=== PATIENT | male | born 1950 | race African-American/Black ===

== ENCOUNTER 2017-02-17 21:09 | Inpatient (IN) | payer OTHER ==
[~2017-02-17] VITALS: Ht 185.4 cm; Wt 81.2 kg
[2017-02-17] MEDS ORDERED: LORAZEPAM 2MG/ML CPJ IM ONE ×2 (22:00)
[2017-02-17] MEDS ORDERED: SODIUM CHLORIDE 0.9% 1,000 ML IV ONE (22:00)
[2017-02-17 22:46] LABS: BASOPHILS % 0.5 % (0.0-2.0); HEMATOCRIT. 40.3 % (42.0-52.0); HEMOGLOBIN. 13.7 g/dL (14.0-18.0); LYMPHOCYTES % 10.7 % (20.0-50.0); MEAN CORPUSCULAR HEMOGLOBIN 32.4 pg (28.0-32.0); MEAN CORPUSCULAR VOLUME 95.4 fL (80.0-94.0); MEAN PLATELET VOLUME 6.6 fl (7.4-10.4); MONOCYTES % 4.3 % (2.0-8.0); NEUTROPHILS % 84.5 % (40.0-76.0); PLATELET 328 x1000/uL (130-400); RED BLOOD CELL COUNT 4.23 mill/uL (4.7-6.1); RED CELL DISTRIBUTION WIDTH 14.3 % (11.6-14.6)
[2017-02-17 22:54] LABS: CHLORIDE 101 mEq/L (98-107)
[2017-02-17 22:55] LABS: INR 1.1; PARTIAL THROMBOPLASTIN TIME 28.6 sec (23.4-31.0); PROTHROMBIN TIME 11.1 sec (9.4-11.6)
[2017-02-17 22:58] LABS: CARBON DIOXIDE 27 mEq/L (21-32)
[2017-02-17 23:03] LABS: CARBAMAZEPINE < 0.5 ug/mL (4-12); PHENOBARBITAL < 2.1 ug/mL (15.0-40.0)
[2017-02-17 23:04] LABS: TROPONIN I < 0.02 ng/mL (0.00-0.04)
[2017-02-17 23:05] LABS: CREATINE KINASE MB FRACTION 1.4 ng/mL (0.5-3.6)
[2017-02-18] MEDS ORDERED: ASPIRIN 81MG TABLET PO ONE (00:15)
[2017-02-18] MEDS ORDERED: VALPROIC ACID 250MG CAPSULE PO ONE (00:30)
[2017-02-18 02:07] LABS: CLARITY URINE CLEAR (CLEAR); COLOR URINE YELLOW (YELLOW); GLUCOSE URINE NEGATIVE (NEGATIVE); KETONES URINE TRACE (NEGATIVE); LEUKOCYTE ESTERASE URINE TRACE (NEGATIVE); NITRITE URINE NEGATIVE (NEGATIVE); OCCULT BLOOD URINE NEGATIVE (NEGATIVE); PH URINE 5.5 (4.5-8.0); PROTEIN URINE 1+ (NEGATIVE); SPECIFIC GRAVITY URINE 1.023 (1.005-1.030)
[2017-02-18] MEDS ORDERED: CEFTRIAXONE 1 G PREMIX 50 ML IV ONE (02:30)
[2017-02-18 02:37] LABS: *AMPHETAMINES SCREEN URINE NEGATIVE (NEGATIVE); *BARBITURATES SCREEN URINE NEGATIVE (NEGATIVE); *BENZODIAZEPINES SCREEN URINE NEGATIVE (NEGATIVE); *COCAINE SCREEN URINE NEGATIVE (NEGATIVE); CANNABINOID URINE SCREEN NEGATIVE (NEGATIVE); METHADONE URINE SCREEN NEGATIVE (NEGATIVE); OPIATES URINE SCREEN NEGATIVE (NEGATIVE); PHENCYCLIDINE URINE SCREEN NEGATIVE (NEGATIVE)
[2017-02-18 03:25] VITALS: BP 122/73
[2017-02-18] MEDS ORDERED: LORAZEPAM 2MG/ML CPJ IV PRN ×2 (04:30→09:59)
[2017-02-18] MEDS ORDERED: SODIUM CHLORIDE 0.9% INJ 3ML FLUSH IVF ONE (04:30)
[2017-02-18 08:00] VITALS: BP 123/78
[2017-02-18] MEDS ORDERED: VALPROATE SODIUM 250MG/5ML UDC PO SCH (09:00)
[2017-02-18] MEDS: VALPROATE SODIUM 250MG/5ML UDC PO SCH ×2 (10:28→16:22)
[2017-02-18 12:00] VITALS: BP 117/75
[2017-02-18] MEDS: FOLIC ACID 1MG TABLET PO SCH (12:13)
[2017-02-18] MEDS: MULTIVITAMINS,THER W-MINERALS TABLET PO SCH (12:13)
[2017-02-18] MEDS: THIAMINE HCL 100MG TABLET PO SCH (12:14)
[2017-02-18 12:26] LABS: AMMONIA 45 uMol/L (<32)
[2017-02-18 12:47] LABS: ETHANOL BLOOD < 10 mg/dL; T4 FREE 1.31 ng/dL (0.76-1.46)
[2017-02-18 13:17] LABS: VITAMIN B12 SERUM 307 pg/mL (211-911)
[2017-02-18 15:52] LABS: FOLIC ACID (FOLATE) SERUM > 20.00 ng/mL (>5.38)
[2017-02-18 16:00] VITALS: BP 105/75
[2017-02-18 20:00] VITALS: BP 103/69
[2017-02-18] MEDS: LEVETIRACETAM 500MG TABLET PO SCH (21:56)
[2017-02-19] VITALS: BP 129/85
[2017-02-19] MEDS: CEFTRIAXONE 1 G PREMIX 50 ML IV SCH (02:08)
[2017-02-19 04:00] VITALS: BP 126/84
[2017-02-19 06:22] LABS: CARBON DIOXIDE 27 mEq/L (21-32); CHLORIDE 101 mEq/L (98-107)
[2017-02-19 06:24] LABS: BASOPHILS % 0.5 % (0.0-2.0); HEMATOCRIT. 34.8 % (42.0-52.0); HEMOGLOBIN. 11.8 g/dL (14.0-18.0); LYMPHOCYTES % 21.3 % (20.0-50.0); MEAN CORPUSCULAR HEMOGLOBIN 32.5 pg (28.0-32.0); MEAN CORPUSCULAR VOLUME 95.7 fL (80.0-94.0); MEAN PLATELET VOLUME 7.1 fl (7.4-10.4); NEUTROPHILS % 72.2 % (40.0-76.0); PLATELET 277 x1000/uL (130-400); RED BLOOD CELL COUNT 3.63 mill/uL (4.7-6.1); RED CELL DISTRIBUTION WIDTH 13.7 % (11.6-14.6)
[2017-02-19 07:05] LABS: AMMONIA 45 uMol/L (<32)
[2017-02-19 08:51] LABS: *AMPHETAMINES SCREEN URINE NEGATIVE (NEGATIVE); *BARBITURATES SCREEN URINE NEGATIVE (NEGATIVE); *BENZODIAZEPINES SCREEN URINE NEGATIVE (NEGATIVE); *COCAINE SCREEN URINE NEGATIVE (NEGATIVE); CANNABINOID URINE SCREEN NEGATIVE (NEGATIVE); METHADONE URINE SCREEN NEGATIVE (NEGATIVE); OPIATES URINE SCREEN NEGATIVE (NEGATIVE); PHENCYCLIDINE URINE SCREEN NEGATIVE (NEGATIVE)
[2017-02-19] MEDS: THIAMINE HCL 100MG TABLET PO SCH (09:02)
[2017-02-19] MEDS: FOLIC ACID 1MG TABLET PO SCH (09:02)
[2017-02-19] MEDS: MULTIVITAMINS,THER W-MINERALS TABLET PO SCH (09:02)
[2017-02-19] MEDS: LEVETIRACETAM 500MG TABLET PO SCH ×2 (09:02→20:44)
[2017-02-19] MEDS: VALPROATE SODIUM 250MG/5ML UDC PO SCH ×2 (09:02→16:18)
[2017-02-19 12:00] VITALS: BP 132/69
[2017-02-19 16:46] VITALS: BP 130/76
[2017-02-19 20:00] VITALS: BP 138/86
[2017-02-20] VITALS: BP 126/68
[2017-02-20] MEDS: CEFTRIAXONE 1 G PREMIX 50 ML IV SCH (02:45)
[2017-02-20 04:00] VITALS: BP 158/86
[2017-02-20 08:00] VITALS: BP 137/90
[2017-02-20] MEDS: LEVETIRACETAM 500MG TABLET PO SCH (08:35)
[2017-02-20] MEDS: VALPROATE SODIUM 250MG/5ML UDC PO SCH (08:35)
[2017-02-20] MEDS: THIAMINE HCL 100MG TABLET PO SCH (08:36)
[2017-02-20] MEDS: MULTIVITAMINS,THER W-MINERALS TABLET PO SCH (08:36)
[2017-02-20] MEDS: FOLIC ACID 1MG TABLET PO SCH (08:36)
[2017-02-20] MEDS ORDERED: HYDROCODONE/ACETAMINOPHEN 5/325MG TABLET PO PRN (10:45)
[2017-02-20 11:51] VITALS: BP 132/84
[2017-02-20] MEDS ORDERED: NICOTINE 14MG PATCH TD SCH (12:00)
== END 2017-02-20 14:25 | disposition left against medical advice (07) | DRG 139 ==
LOC: ER 22:22 → 6WST 02-18 00:31 → ENRESERV 02-18 02:43 → ER 02-18 03:03
PROVIDERS: ADMIT Internal Medicine; ATTEND Internal Medicine
DX: J18.9 Pneumonia, unspecified organism (principal); G92 Toxic encephalopathy; E72.20 Disorder of urea cycle metabolism, unspecified; G40.909 Epilepsy, unspecified, not intractable, without status epilepticus; D64.9 Anemia, unspecified; I10 Essential (primary) hypertension; N39.0 Urinary tract infection, site not specified; Z91.19 Patient's noncompliance with other medical treatment and regimen; R73.9 Hyperglycemia, unspecified; D72.829 Elevated white blood cell count, unspecified
CPT/HCPCS: 36415; 70450; 70551; 71010; 80048; 80053; 80156; 80165; 80184; 80185; 80305; 81001; 82140; 82553; 82607; 82746; 83036; 84439; 84443; 84481; 84484; 85025; 85610; 85730; 87040; 87086; 93005; 96361; 96365; 96372; 99285; C1893; G0482; J0696; J2060; J7030